=== PATIENT | female | born 1950 | race Caucasian/White ===

== ENCOUNTER 2017-12-08 17:49 | Emergency (ER) | payer SELFPAY ==
[2017-12-08 17:57] VITALS: BP 108/46; PULSE 77; TEMP 97.7; BMI 22.4
--- NOTE | 2017-12-08 17:58 | PDOC ---
History of Present Illness <Yassine Torrez - Last Filed: 12/08/17 18:39> - History of Present Illness Initial Comments: 12/08/17 18:51 The patient is a 67 year old female with a significant PMH of Hypothyroidism presents to the emergency department with lower back pain that began earlier today (7am). The patient reports that she was bending over when this lower back pain started. She states that her lower back pain is sharp . She reports that her lower back pain has been waxing and waning . The patient states that she took aleve when the pain began with no relief then, she took tylenol. She reports that that this incident has happened previously in 2014. The patient reports that she had not follow up with an orthopedist after initial incident. The patient denies chest pain, shortness of breath, headache and dizziness. Denies fever, chills, nausea, vomit, diarrhea and constipation. Denies dysuria, frequency, urgency and hematuria. Denies any neck pain . Denies numbness, weakness, or tingling Denies bowel or urinary incontinence. Allergies: NKA Medications: Levothyroxine, Nebivolol, Azithromycin Past surgical history: section (2x) Social history: Patient lives at home with her . She smokes a pack of cigarettes a day PCP: None reported <Any Boss - Last Filed: 12/08/17 18:51> - General Chief Complaint: Back Pain Stated Complaint: LOWER BACK PAIN Time Seen by Provider: 12/08/17 17:52 Past History - Past Medical History Cardiac Disorders: Yes (PALPATATIONS) COPD: No Disorders: Yes (UTI) HTN: Yes Thyroid Disease: Yes (HYPO) - Suicide/Smoking/Psychosocial Hx Smoking History: Current every day smoker Have you smoked in the past 12 months: Yes Number of Cigarettes Smoked Daily: 15 Information on smoking cessation initiated: Yes 'Breaking Loose' booklet given: 12/08/17 Hx Alcohol Use: No Drug/Substance Use Hx: No Substance Use Type: None <Yassine Torrez - Last Filed: 12/08/17 18:39> <Any Boss - Last Filed: 12/08/17 18:51> - Past Medical History Allergies/Adverse Reactions: Allergies Allergy/AdvReac Type Severity Reaction Status Date / Time No Known Allergies Allergy Verified 12/08/17 17:50 Home Medications: Ambulatory Orders Levothyroxine [Synthroid -] 50 mcg PO DAILY 04/01/15 Nebivolol HCl [Bystolic] 5 mg PO DAILY 04/01/15 Cyclobenzaprine HCl [Flexeril] 10 mg PO TID #15 tablet 12/08/17 Ibuprofen 800 mg PO TID #20 tablet 12/08/17 Review of Systems - Review of Systems Able to Perform ROS?: Yes Comments:: 12/08/17 18:42 Absent: fever, chills, diaphoresis, generalized weakness, malaise, loss of appetite HEENT: Absent: rhinorrhea, nasal congestion, throat pain, throat swelling, difficulty swallowing, mouth swelling, ear pain, eye pain, visual Changes CARDIOVASCULAR: Absent: chest pain, syncope, palpitations, irregular heart rate, lightheadedness , peripheral edema RESPIRATORY: Absent: cough, shortness of breath, dyspnea with exertion, orthopnea, wheezing, stridor, hemoptysis GASTROINTESTINAL: Absent: abdominal pain, abdominal distension, nausea, vomiting, diarrhea, constipation, melena, hematochezia GENITOURINARY: Absent: dysuria, frequency, urgency, hesitancy, hematuria, flank pain, genital pain MUSCULOSKELETAL: Present(+)Lower back pain Absent: myalgia, arthralgia, joint swelling SKIN: Absent: rash, itching, pallor HEMATOLOGIC/IMMUNOLOGIC: Absent: easy bleeding, easy bruising, lymphadenopathy, frequent infections ENDOCRINE: Absent: unexplained weight gain, unexplained weight loss, heat intolerance, cold intolerance NEUROLOGIC: Absent: headache, focal weakness or paresthesias, dizziness, unsteady gait, seizure, mental status changes, bladder or bowel incontinence PSYCHIATRIC: Absent: anxiety, depression, suicidal or homicidal ideation, hallucinations. <Any Boss - Last Filed: 12/08/17 18:51> *Physical Exam - Vital Signs Last Vital Signs Temp Pulse Resp BP Pulse Ox 97.7 F 77 18 108/46 97 12/08/17 17:50 12/08/17 17:50 12/08/17 17:50 12/08/17 17:50 12/08/17 17:50 <Yassine Torrez - Last Filed: 12/08/17 18:39> - Vital Signs Last Vital Signs Temp Pulse Resp BP Pulse Ox 97.7 F 77 18 108/46 97 12/08/17 17:50 12/08/17 17:50 12/08/17 17:50 12/08/17 17:50 12/08/17 17:50 <Any Boss - Last Filed: 12/08/17 18:51> *DC/Admit/Observation/Transfer - Discharge Dispostion Admit: No <Yassine Torrez - Last Filed: 12/08/17 18:39> - Attestations Scribe Attestion: 12/08/17 18:42 Documentation prepared by Any Boss, acting as medical office worker for Yassine Barros MD <Any Boss - Last Filed: 12/08/17 18:51> Diagnosis at time of Disposition: Low back pain Qualifiers: Chronicity: acute Back pain laterality: bilateral Sciatica presence: without sciatica Qualified Code(s): M54.5 - Low back pain - Discharge Dispostion Disposition: HOME Condition at time of disposition: Improved - Prescriptions Prescriptions: Cyclobenzaprine HCl [Flexeril] 10 mg PO TID #15 tablet Ibuprofen 800 mg PO TID #20 tablet - Referrals Referrals: Rustam Cerrato MD [Staff Physician] - 1 week - Patient Instructions Printed Discharge Instructions: DI for Low Back Pain, Smoking Cessation Additional Instructions: Rest, heat, medication as directed. Avoid bending or lifting and sitting in a chair. See Back Specialist if no improvement, or if symptoms worsen or other symptoms develop, return to the emergency room.
[2017-12-08] MEDS ORDERED: hydrOXYzine PAMOATE 25 MG CAPSULE (FP) PO ONE ×2 (18:15→18:36)
[2017-12-08] MEDS ORDERED: KETOROLAC TROMETHAMINE 60 MG/2 ML VIAL IM ONE (18:15)
[2017-12-08] MEDS ORDERED: KETOROLAC TROMETHAMINE 60 MG/2 ML VIAL ONE (18:36)
== END 2017-12-08 19:42 | disposition home or self-care (01) ==
LOC: FER 17:49
PROC: 3E0233Z Introduction of Anti-inflammatory into Muscle, Percutaneous Approach (ICD-10-PCS; principal; 2017-12-08)
DX: M54.5 Low back pain (principal); E03.9 Hypothyroidism, unspecified; F17.210 Nicotine dependence, cigarettes, uncomplicated; I10 Essential (primary) hypertension; R00.2 Palpitations
CPT/HCPCS: 72100-TC-FY; 99282-25